=== PATIENT | male | born 1960 | race Caucasian/White ===

== ENCOUNTER 2024-08-15 18:06 | Emergency (ER) | payer OTHER ==
--- NOTE | 2024-08-15 18:32 | ERPHSYRPT ---
- History of Present Illness Time Seen by Provider: 08/15/24 18:25 Source: patient Exam Limitations: no limitations Physician History: This is a 64-year-old white male patient who arrives by private vehicle secondary to concern of very high blood pressure. Patient's measured systolic blood pressure at home this evening prior to arrival was in the 190s. Patient states he has some chest pain he also has blurred vision and a headache. Patient is currently not on any medications and is supposed to be taking lisinopril. Patient has a history of pancreatitis but he has no abdominal pain. He has had no nausea vomiting or diarrhea symptoms. Patient's blood pressure on arrival to the emergency department is 182/125. Severity: moderate Associated Symptoms: chest pain, headaches, No nausea, No vomiting, No abdominal pain, No shortness of breath Allergies/Adverse Reactions: No Known Drug Allergies Allergy (Verified 08/15/24 18:28) Home Medications: No Reportable Medications [No Reported Medications] 08/15/24 [History] Travel Risk - International Travel Have you traveled outside of the country in past 3 weeks: No - Emerging Infectious Disease Are you exhibiting symptoms associated with any current EIDs: No - Review of Systems Constitutional: No Symptoms Eyes: No Symptoms Ears, Nose, & Throat: No Symptoms Respiratory: No Symptoms Cardiac: Chest Pain Abdominal/Gastrointestinal: No Symptoms Genitourinary Symptoms: No Symptoms Musculoskeletal: No Symptoms Skin: No Symptoms Neurological: Headache, Other Psychological: No Symptoms (Blurred vision) Endocrine: No Symptoms Hematologic/Lymphatic: No Symptoms Immunological/Allergic: No Symptoms All Other Systems: Reviewed and Negative - Past Medical History Pertinent Past Medical History: Yes Neurological History: No Pertinent History ENT History: No Pertinent History Cardiac History: No Pertinent History Respiratory History: Emphysema Endocrine Medical History: No Pertinent History Musculoskeletal History: Other, Arthritis GI Medical History: No Pertinent History History: No Pertinent History Psycho-Social History: No Pertinent History Male Reproductive Disorders: No Pertinent History - Past Surgical History Past Surgical History: No - Social History Smoking Status: Current every day smoker Exposure to second hand smoke: Yes Drug Use: marijuana Patient Lives Alone: No - Nursing Vital Signs Nursing Vital Signs: Initial Vital Signs Temperature 98.8 F 08/15/24 18:25 Pulse Rate 91 H 08/15/24 18:25 Respiratory Rate 20 08/15/24 18:25 Blood Pressure 182/125 08/15/24 18:25 O2 Sat by Pulse Oximetry 98 08/15/24 18:25 Pain Scale Pain Intensity 0 - Physical Exam General Appearance: no apparent distress, alert, anxiety, thin Eye Exam: PERRL/EOMI, eyes nml inspection Ears, Nose, Throat Exam: normal ENT inspection, moist mucous membranes Neck Exam: normal inspection, non-tender, supple, full range of motion Respiratory Exam: normal breath sounds, chest tenderness, lungs clear, airway intact, No respiratory distress Cardiovascular Exam: regular rate/rhythm, normal heart sounds, normal peripheral pulses Gastrointestinal/Abdomen Exam: soft, normal bowel sounds, No tenderness Rectal Exam: not done Back Exam: normal inspection, normal range of motion, No CVA tenderness, No vertebral tenderness Extremity Exam: normal inspection, normal range of motion, pelvis stable Neurologic Exam: alert, oriented x 3, cooperative, plant tour guide II-XII nml as tested, nml cerebellar function, nml station & gait, sensation nml Skin Exam: normal color, warm, dry Lymphatic Exam: No adenopathy SpO2 Interpretation: normal O2 Delivery: Room Air - Course Nursing assessment & vital signs reviewed: Yes Ordered Tests: Active Orders 24 hr Category Date Time Status Bottle Sorter STAT Care 08/15/24 18:33 Active EKG-ER Only STAT Care 08/15/24 18:33 Active IV Insertion STAT Care 08/15/24 18:33 Active Pulse Oximetry (ED) STAT Care 08/15/24 18:33 Active HEAD WITHOUT CONTRAST [CT] Stat Exams 08/15/24 18:34 Ordered AMYLASE Stat Lab 08/15/24 18:45 Received CBC W DIFF Stat Lab 08/15/24 18:45 Completed CMP Stat Lab 08/15/24 18:45 Received MAGNESIUM Stat Lab 08/15/24 18:45 Received NT PRO BNPII Stat Lab 08/15/24 18:45 Received TROPONIN Stat Lab 08/15/24 18:45 Received Medication Summary Discontinued Medications Generic Name Dose Route Start Last Admin Trade Name Freq PRN Reason Stop Dose Admin Enalaprilat 1.25 mg 08/15/24 18:33 08/15/24 18:44 Enalaprilat 2.5 Mg Injection IV 08/15/24 18:34 1.25 mg STAT ONE Administration Enalaprilat Confirm 08/15/24 18:42 Enalaprilat 2.5 Mg Injection Administered 08/15/24 18:43 Dose 2.5 mg IV .STK-MED ONE Lab/Rad Data: Laboratory Result Diagrams 08/15/24 18:45 Laboratory Results 08/15/24 Range/Units 18:45 WBC 10.0 H (4.23-9.07) x10^3/uL RBC 5.05 (4.63-6.08) x10^6/uL Hgb 13.9 (13.7-17.5) g/dL Hct 42.9 (40.1-51.0) % MCV 85.0 (79.0-92.2) fL MCH 27.5 (25.7-32.2) pg MCHC 32.4 (32.3-36.5) g/dL RDW 14.2 (11.6-14.4) % Plt Count 404 H (163-337) x10^3/uL MPV 9.9 (9.4-12.4) fL Gran % 54.0 (34.0-67.9) % Immature Gran % (Auto) 0.3 (0.001-0.429) % Nucleat RBC Rel Count 0.0 (0.00-0.2) % Eos # (Auto) 0.25 (0.04-0.54) x10^3/uL Immature Gran # (Auto) 0.03 (0.001-0.031) x10^3u/L Absolute Lymphs (auto) 3.29 (1.32-3.57) x10^3/uL Absolute Monos (auto) 0.96 H (0.30-0.82) x10^3/uL Absolute Nucleated RBC 0.00 (0.00-0.012) x10^3u/L Lymphocytes % 32.8 (21.8-53.1) % Monocytes % 9.6 (5.3-12.2) % Eosinophils % 2.5 (0.8-7.0) % Basophils % 0.8 (0.2-1.2) % Absolute Granulocytes 5.42 H (1.78-5.38) x10^3/uL Basophils # 0.08 (0.01-0.08) x10^3/uL - Progress Progress Note: 08/15/24 18:46 I am transferring care of this patient to Dr. Washington at shift change. He will follow-up on the workup results and make final disposition. 08/15/24 18:51 My medical decision making and the assignment of moderate complexity to this patient's medical issue today is based on review of the patient's past medical history, review the patient's medication list, review the patient drug allergy list, history present illness and physical findings on examination. The workup in this patient clues placement of an intravenous line, infusion of Vasotec IV, CBC, CMP, magnesium level, troponin level, twelve-lead EKG, CT scan of the head without contrast, PT/INR. Differential diagnosis includes was not limited to hypertension, acute intracranial abnormality, electrolyte abnormalities, noncompliance with medication, arrhythmia, myocardial infarction - Departure Departure Disposition: Home Clinical Impression: Hypertension Condition: Stable Critical Care Time: No Referrals: MARY MADERA MD [ACTIVE STAFF] - Follow up/PCP as directed
[2024-08-15] MEDS ORDERED: ENALAPRILAT 2.5 MG INJECTION IV ONE (18:42)
[2024-08-15 18:43] VITALS: TEMP 98.8
[2024-08-15] MEDS: ENALAPRILAT 2.5 MG INJECTION IV ONE (18:44)
[2024-08-15 18:50] LABS: Absolute Neutrophil Ct (ANC) 5.42 x10^3/uL (1.78-5.38); BASOPHIL % 0.8 % (0.2-1.2); Basophil (Absolute #) 0.08 x10^3/uL (0.01-0.08); Eosinophil % 2.5 % (0.8-7.0); Eosinophil (Absolute #) 0.25 x10^3/uL (0.04-0.54); Hematocrit 42.9 % (40.1-51.0); Hemoglobin 13.9 g/dL (13.7-17.5); IMMATURE GRAN # 0.03 x10^3u/L (0.001-0.031); IMMATURE GRAN % 0.3 % (0.001-0.429); Lymphocyte (Absolute #) 3.29 x10^3/uL (1.32-3.57); Lymphocytes % 32.8 % (21.8-53.1); Mean Corpuscular Hemoglobin 27.5 pg (25.7-32.2); Mean Corpuscular Hgb Concent. 32.4 g/dL (32.3-36.5); Mean Platelet Volume 9.9 fL (9.4-12.4); Monocyte (Absolute #) 0.96 x10^3/uL (0.30-0.82); Monocytes % 9.6 % (5.3-12.2); Platelet Count 404 x10^3/uL (163-337); Red Blood Count 5.05 x10^6/uL (4.63-6.08); Red Cell Distribution Width 14.2 % (11.6-14.4)
[2024-08-15 19:39] LABS: ALBUMIN 4.6 g/dL (3.5-5.0); ALKALINE PHOSPHATASE 93 U/L (38-126); AMYLASE 101 U/L (30-110); BLOOD UREA NITROGEN 21 mg/dL (9-20); CHLORIDE 104 mmol/L (98-107); Calcium 9.4 mg/dL (8.4-10.2); Carbon Dioxide 29 mmol/L (22-30); Creatinine 1 1.31 mg/dL (0.66-1.25); EST GLOMERULAR FILTRATION RATE 60.8 ML/MIN; Glucose 97 mg/dL (74-106); MAGNESIUM 2.1 mg/dL (1.6-2.3); Potassium 3.8 mmol/L (3.5-5.1); SGOT/AST 26 U/L (17-59); SGPT/ALT 15 U/L (0-50); SODIUM 140 mmol/L (135-145); TROPONIN < 0.012 ng/mL (0.000-0.033); Total Protein 8.6 g/dL (6.3-8.2)
--- NOTE | 2024-08-15 20:11 | XRAY ---
CLINICAL HISTORY: SEGOVIA; blurred vision; hypertension COMPARISON: None. TECHNIQUE: Axial noncontrast CT scan of the brain was performed from the skull base to the high parietal region. One of the following dose reduction techniques were utilized for this exam: Automated exposure control, adjustment of the mA and/or kV according to patient size, use of iterative reconstruction. FINDINGS: The visualized brain parenchyma shows normal appearance. De Leon-white matter differentiation is maintained. No midline shifts or deformity. No intracerebral or extra axial hematoma. Normal size and configuration of the cerebral ventricles. Normal CT appearance of the posterior fossa structures namely the cerebellar hemispheres, brainstem and cerebellar peduncles. The cerebello-pontine angles are clear. The osseous structures in the skull base are unremarkable. No definite calvarium fractures. The scanned paranasal sinuses are clear. Bilateral mastoid air cells appear unremarkable. IMPRESSION: No acute intracranial abnormality detected in plain CT head at present. If there is strong clinical suspicion of any acute insult MRI brain can be done. Electronically Signed by: Duane Card MD. (08/15/2024 20:07:18 EST)
[2024-08-15 20:27] VITALS: O2SAT 97
[2024-08-15 21:02] VITALS: BP 139/104; PULSE 79; RESP 19
== END 2024-08-15 21:11 | disposition home or self-care (01) ==
LOC: ED 18:06
DX: I10 Essential (primary) hypertension (principal); R07.9 Chest pain, unspecified; R51.9 Headache, unspecified; H53.8 Other visual disturbances; Z79.899 Other long term (current) drug therapy; Z72.0 Tobacco use
CPT/HCPCS: 36415; 70450; 80053; 82150; 83735; 83880; 84484; 85025; 93005; 93041; 94760; 96374; 99284; 99285

== ENCOUNTER 2025-05-18 06:29 | Day surgery (SDC) | payer MEDICARE, OTHER ==
[2025-05-18] MEDS ORDERED: CEFAZOLIN SODIUM ONE ×2 (06:53→06:54)
[2025-05-18] MEDS ORDERED: Lactated Ringers 1,000 ML IV ONE ×2 (06:53→10:53)
[2025-05-18] MEDS ORDERED: Lactated Ringers 1,000 ML IV SCH (07:00)
[2025-05-18] MEDS ORDERED: TYLENOL EXTRA STRENGTH 500 MG ONE (07:30)
[2025-05-18] MEDS ORDERED: NEURONTIN ONE (07:30)
[2025-05-18] MEDS ORDERED: celeBREX 100 MG ONE (07:31)
[2025-05-18] MEDS ORDERED: Decadron 4 MG ONE (07:31)
[2025-05-18] MEDS: TYLENOL EXTRA STRENGTH 500 MG PO ONE (07:32)
[2025-05-18] MEDS: NEURONTIN PO ONE (07:32)
[2025-05-18] MEDS: Decadron 4 MG PO ONE (07:32)
[2025-05-18] MEDS: celeBREX 100 MG PO ONE (07:32)
[2025-05-18 07:33] LABS: Hematocrit 42.9 % (40.1-51.0); Hemoglobin 13.8 g/dL (13.7-17.5); Mean Corpuscular Hemoglobin 28.1 pg (25.7-32.2); Mean Corpuscular Hgb Concent. 32.2 g/dL (32.3-36.5); Platelet Count 336 x10^3/uL (163-337); Red Blood Count 4.91 x10^6/uL (4.63-6.08); White Blood Count 9.4 x10^3/uL (4.23-9.07)
[2025-05-18 07:44] VITALS: O2SAT 96
[2025-05-18 07:45] LABS: Calcium 8.7 mg/dL (8.4-10.2); Carbon Dioxide 24.0 mmol/L (22-30); Creatinine 1 1.37 mg/dL (0.66-1.25); EST GLOMERULAR FILTRATION RATE 57.3 ML/MIN; Glucose 111.0 mg/dL (74-106); Potassium 4.1 mmol/L (3.5-5.1); SGOT/AST 18.0 U/L (17-59); SGPT/ALT 13.0 U/L (0-50); Total Protein 7.8 g/dL (6.3-8.2)
[2025-05-18] MEDS ORDERED: propofoL IV ONE (07:45)
[2025-05-18] MEDS ORDERED: ROCURONIUM BROMIDE IV ONE (07:45)
[2025-05-18] MEDS ORDERED: Versed 2 MG/2 ML Injection ONE ×2 (07:46→08:29)
[2025-05-18] MEDS ORDERED: SUBLIMAZE 100 MCG/2 ML ONE (07:46)
[2025-05-18] MEDS ORDERED: Xylocaine-Mpf 2% 5 Ml Vial ONE (07:47)
[2025-05-18] MEDS ORDERED: Marcaine Mpf 0.5% Vial 30 Ml ONE (08:14)
[2025-05-18] MEDS ORDERED: EXPAREL 133 MG/10 ML VIAL IJ ONE (08:14)
[2025-05-18] MEDS ORDERED: PHENYLEPHRINE HCL ONE (10:37)
--- NOTE | 2025-05-18 12:11 | XRAY ---
Indication: Right ankle surgery. Hardware removal, partial tail ectomy, multiple bone biopsies, antibiotic cement spacer, and I & D with bone debridement. Intraoperative fluoroscopy provided for 2 minute 18 seconds. 11 digital spot images submitted for interpretation ultimately demonstrates removal all orthopedic screws and insertion talotibial spacer. Correlate with intraoperative findings/report.
[2025-05-18 12:59] VITALS: BP 143/97; PULSE 82; RESP 17; TEMP 98
--- NOTE | 2025-05-18 15:13 | XRAY ---
2 minutes 18 seconds of fluoroscopy used in surgery for a right ankle for hardware removal, partial talectomy, multiple bone biopsies, antibiotic cement spacer, and I & D with bone debridement.
--- NOTE | 2025-05-19 09:50 | OP ---
SURGERY DATE/TIME: 05/18/2025 [id number] PREOPERATIVE DIAGNOSES: 1) Right ankle pain. 2) Painful orthopedic hardware. 3) Avascular necrosis, right talus. 4) Osteomyelitis right talus. 5) Traumatic deformity, right ankle. 6) Traumatic osteoarthritis, right ankle. 7) Painful retained hardware, right ankle. POSTOPERATIVE DIAGNOSES: 1) Right ankle pain. 2) Painful orthopedic hardware. 3) Avascular necrosis, right talus. 4) Osteomyelitis right talus. 5) Traumatic deformity, right ankle. 6) Traumatic osteoarthritis, right ankle. 7) Painful retained hardware, right ankle. PROCEDURES: 1) Incision and drainage with bone debridement, right ankle. 2) Partial talectomy, right ankle. 3) Bone biopsy, right tibia. 4) Bone biopsy, right talus. 5) Bone biopsy, right calcaneus. 6) Bone biopsy, right fibula. 7) Application of antibiotic impregnated cement spacer. 8) Removal of retained hardware, right talus and tibia. SURGEON: Tato Fritz MD DENTAL MANAGER: None. ANESTHESIA: General. HEMOSTASIS: Tourniquet set to 325 mmHg for a total of 75 total tourniquet minutes. ESTIMATED BLOOD LOSS: Approximately 20 mL. INJECTABLES: See Anesthesia report for details. A popliteal and saphenous block. INDICATIONS FOR PROCEDURE: The patient is a very pleasant, 65-year-old male, who presented to my service with complaints of pain to the right ankle stating that he had fallen off a richar approximately 2 years ago and had surgery with Dr. Medina in [place]. He states that his first surgery was to the medial ankle. One month later, he had another surgery to the lateral side and the patient was unfortunately unhappy with the experience. He states that due to the lack of the patient care he received, he feels like he has been walking on a club and he has developed sharp, shooting pains to the right ankle. From that standpoint, patient had x-rays taken, which demonstrated avascular necrosis of the talus, which after a fall from a richar is an expected complication in regards to extreme vascular damage to the talus. At this time, he does have some significant disillusion and fragmentation of the bone surrounding the talus and the tibia, as well as painful retained hardware, significant swelling and deformity. From that standpoint, patient is amenable to going forward with removal of the hardware and temporizing the situation with antibiotic impregnated cement, as well as removal of hardware and bone debridement. This will give us a chance to obtain bone biopsies and confirm or deny the presence of bone infection, which can very much look like avascular necrosis or Charcot osteoarthropathy. From that standpoint, patient has been made aware of all risks, complications and benefits of surgical intervention at this time including but not limited to infection, hematoma, seroma, possibility of delayed wound healing, non-wound healing, and possible need for further surgical intervention at a later date. No guarantees were provided as to the outcome. Plenty of time was allowed for the patient to ask questions, which were answered to his apparent satisfaction. It is at this time we decided to proceed. DESCRIPTION OF PROCEDURE AND FINDINGS: Patient was brought into the PACU prior to the procedure and provided a popliteal and saphenous block. Following this, the patient was brought in the operating room and placed on the operating room table in the supine position. General anesthesia was administered until the patient was adequately sedated. A very well-padded thigh tourniquet was applied and the tourniquet was set to 325 mmHg. At this time, the right lower extremity was prepped and draped in the typical sterile fashion and lowered onto the surgical field. Attention was directed to the right ankle over the anterolateral aspect of the ankle where previous surgical scar was identified. Under fluoroscopic guidance, this was intended to be our hardware removal point for the talar screws. From that standpoint, an Esmarch was utilized to exsanguinate the leg, and the tourniquet was inflated. A linear incision was made over the anterolateral aspect of the ankle where this was deepened and immediately ran into within the scar tissue and not affixed to the bone, the hardware was readily apparent. The screws were loose and were able to be removed without a horse and wagon driver utilizing a pair of rongeurs. The plate also was able to be removed easily from this site. Once this was removed, we moved on to the medial side where the talar head screws, as well as the medial malleolar screws, were removed through separate incisions. They were all loose and required larger incisions in order to introduce a rongeur in order to remove the retained hardware. From that standpoint, once the hardware was removed, bone debridement took place utilizing a combination of rongeurs, curettes, [place], as well as a 31 mm sagittal saw. This occurred to the tibia and the talus where, at this time, decision was made to perform a partial talectomy of the posterior half of the talus where there was a significant amount of subsidence and scar tissue. When this was removed, it was approximately a quarter of the talus had been removed in total. Bone biopsies were then obtained of the tibia, fibula, talus and calcaneus for assessing for the potential of chronic or acute bone infection. From that standpoint, a 0.5 of a gram gentamicin antibiotic spacer was then introduced into the deficit after Bactisure was utilized to flush the surgical site and sterile saline was utilized to flush it once again. Once this was placed, all retained hardware sites were debrided utilizing a rongeur and curette, curetting any of the screw holes and once this was achieved, copious amounts of sterile saline were once again utilized to flush the site. A 3-0 nylon and 4-0 Monocryl were utilized in a subcutaneous simple interrupted buried-type fashion and a horizontal mattress-type fashion for the skin. A dressing consisting of Betadine, Adaptic, 4 x 4, Kerlix, ABD and a well-padded posterior splint was applied to the patient's right lower extremity with the foot orthogonal relative to longitudinal access of the leg. Patient was then reversed from anesthesia and returned to the postoperative anesthesia care unit with vital signs stable and vascular status intact. Patient handled the anesthesia, as well as the procedure, without significant complication. Postoperative orders as indicated in the patient's discharge chart.
== END 2025-05-18 13:17 | disposition home or self-care (01) ==
LOC: SDC 06:29
PROVIDERS: ATTEND Podiatrist Foot & Ankle Surgery
DX: T84.84XA Pain due to internal orthopedic prosthetic devices, implants and grafts, initial encounter (principal); M25.571 Pain in right ankle and joints of right foot; M86.9 Osteomyelitis, unspecified; M87.074 Idiopathic aseptic necrosis of right foot; M19.071 Primary osteoarthritis, right ankle and foot
CPT/HCPCS: 01480; 01482; 11981; 20245; 20680; 27603; 27645; 36415; 64447; 64450; 73610; 76000; 76942; 80053; 85027; 87070; 87075; 88307; 88311; A6260; C1713

== ENCOUNTER 2025-06-08 10:48 | Day surgery (SDC) | payer MEDICARE, OTHER ==
[2025-06-08] MEDS ORDERED: EXPAREL 133 MG/10 ML VIAL IJ ONE (10:49)
[2025-06-08] MEDS ORDERED: TYLENOL EXTRA STRENGTH 500 MG ONE (11:58)
[2025-06-08] MEDS ORDERED: Decadron 4 MG ONE (11:59)
[2025-06-08] MEDS ORDERED: celeBREX 100 MG ONE (11:59)
[2025-06-08] MEDS ORDERED: Lactated Ringers 1,000 ML IV ONE ×2 (11:59→15:39)
[2025-06-08] MEDS ORDERED: NEURONTIN ONE (11:59)
[2025-06-08] MEDS ORDERED: CEFAZOLIN SODIUM ONE (11:59)
[2025-06-08 12:03] VITALS: RESP 18; O2SAT 97
[2025-06-08] MEDS: NEURONTIN PO ONE (12:03)
[2025-06-08] MEDS: celeBREX 100 MG PO ONE (12:03)
[2025-06-08] MEDS: TYLENOL EXTRA STRENGTH 500 MG PO ONE (12:03)
[2025-06-08] MEDS: Decadron 4 MG PO ONE (12:03)
[2025-06-08] MEDS ORDERED: Lactated Ringers 1,000 ML IV SCH (12:30)
[2025-06-08 12:56] LABS: Calcium 8.7 mg/dL (8.4-10.2); Carbon Dioxide 24.0 mmol/L (22-30); Creatinine 1 1.21 mg/dL (0.66-1.25); EST GLOMERULAR FILTRATION RATE 66.5 ML/MIN; Glucose 92.0 mg/dL (74-106); Potassium 4.1 mmol/L (3.5-5.1)
[2025-06-08] MEDS ORDERED: Versed 2 MG/2 ML Injection ONE ×2 (13:46→13:52)
[2025-06-08] MEDS ORDERED: Marcaine Mpf 0.5% Vial 30 Ml ONE (13:47)
[2025-06-08] MEDS ORDERED: SUBLIMAZE 100 MCG/2 ML ONE ×3 (13:53→16:19)
[2025-06-08] MEDS ORDERED: propofoL IV ONE (14:18)
[2025-06-08] MEDS ORDERED: ROCURONIUM BROMIDE IV ONE (15:11)
[2025-06-08] MEDS ORDERED: BRIDION 200MG/2ML IV ONE (16:56)
--- NOTE | 2025-06-08 17:19 | XRAY ---
Indication: Right ankle ORIF surgery. Intraoperative fluoroscopy provided for 4 minute 41 seconds. 27 digital spot images submitted for interpretation demonstrates initial exchange talotibial spacer and partial excision distal fibula. New intramedullary gopal traverses talotibial joint with proximal/distal transverse screws. Correlate with intraoperative findings/report.
[2025-06-08] MEDS ORDERED: TRANDATE 20 MG/4 ML SYRINGE IV ONE (17:44)
[2025-06-08] MEDS ORDERED: DILAUDID 0.5 MG/0.5 ML SYRINGE ONE (17:59)
[2025-06-08 18:27] VITALS: TEMP 97.3
[2025-06-08 18:42] VITALS: BP 161/103; PULSE 85
--- NOTE | 2025-06-09 08:37 | XRAY ---
Indication: Pain. Comparison: None 3 nonweightbearing views left foot demonstrates tiny posterior/plantar heel spurs. No other bony, articular, or soft tissue abnormalities.
--- NOTE | 2025-06-09 08:37 | XRAY ---
Indication: Pain. Comparison: None 3 view left ankle demonstrates tiny posterior/plantar heel spurs. No other bony, articular, or soft tissue abnormalities.
--- NOTE | 2025-06-09 15:19 | XRAY ---
Four minutes and 41 seconds of fluoroscopy was used in surgery for a right ankle ORIF surgery.
--- NOTE | 2025-06-11 09:50 | OP ---
SURGERY DATE/TIME: 06/08/2025 [id number] PREOPERATIVE DIAGNOSES: 1) Avascular necrosis, right talus. 2) Osteoarthritis of right ankle. 3) Subtalar joint osteoarthritis. 4) Difficulty with ambulation. 5) Leg length discrepancy. 6) Right ankle pain. POSTOPERATIVE DIAGNOSES: 1) Avascular necrosis, right talus. 2) Osteoarthritis of right ankle. 3) Subtalar joint osteoarthritis. 4) Difficulty with ambulation. 5) Leg length discrepancy. 6) Right ankle pain. PROCEDURES: 1) Partial talectomy. 2) Partial fibulectomy. 3) Tibiotalocalcaneal arthrodesis, right ankle. 4) Removal of deep implant. 5) Bone marrow aspiration. SURGEON: Tato Fritz MD CHORE TENDER: None. MATERIALS: [place] ankle nail measuring 10 x 210 mm, allograft femoral head and BMA for harvest from the calcaneus. ANESTHESIA: General plus a preoperative popliteal and saphenous block. See Anesthesia report for details. HEMOSTASIS: Thigh tourniquet set to 325 mmHg for a total of 90 total tourniquet minutes. ESTIMATED BLOOD LOSS: Approximately 20 mL. INDICATIONS FOR PROCEDURE: This a second stage to a procedure for the patient. Patient, unfortunately, did have a fall from a height approximately 4 years ago where he did have a fracture of his fracture of his talus, which went well initially. However, over time he did suffer avascular necrosis of the talus with talar collapse. Patient presented to my service fairly frustrated with the care that he received; however, it has been explained to him that avascular necrosis is something that can happen due to loss of blood supply to the talus. From that standpoint, the goal of today's procedure, given that we have already presented with removal of hardware and bone biopsies in multiple sites, revealing that the patient has no osteomyelitis, chronic or acute in this setting that we would proceed with definitive fixation. From that standpoint, patient has been made aware of all risks, complications and benefits of surgical intervention at this time, including but not limited to infection, hematoma, seroma, possibility of delayed wound healing, non-wound healing, and possible need for further surgical intervention at a later date. No guarantees were provided as to the outcome of surgical intervention. Plenty of time was allowed for the patient to ask questions, which were answered to his apparent satisfaction. It is at this time we decided to proceed. DESCRIPTION OF PROCEDURE AND FINDINGS: Patient was brought into the operating room and placed on the operating room table in the supine position. General anesthesia was administered until the patient was adequately sedated. A very well-padded tourniquet was applied to the patient's right thigh, and the tourniquet was set to 325 mmHg. From that standpoint, the right lower extremity was then prepped and draped in the typical sterile fashion and lowered onto the surgical field. Attention was directed to the lateral aspect of the ankle where at this time a linear incision was made to the level of fibula making sure not to damage any neurovascular structures. From that standpoint, once the fibula was circumscribed utilizing a 10 blade, a 31 mm sagittal saw was then utilized to resect the fibula proximally and then, utilizing an osteotome and a pointed reduction forceps, this was retracted distally and removed from the site. From that standpoint, portion of the fibula was then morcellized and utilized for later grafting. From that standpoint, we did proceed with preparation of both the subtalar and the tibiotalar joints at this time. Combination of a 31 mm sagittal saw, curettes, rongeurs, as well as 2-0 mm drill were utilized to clean any remaining cartilage out of the site. A portion of the talus anteriorly was removed in order to get better apposition of the allograft in a position that the foot would remain orthogonal relative to the longitudinal axis of the leg. Once this was performed, the site was checked, demonstrating some significant loss of space and height from where the talus was. To recreate the height of the talus, a femoral head allograft was obtained, and cut to size in the length and height of a talus. This was cut from the base of the femoral neck, leading into the femoral head body for the strongest structural support, as well as cortical bone. A BMA harvest was performed and this was soaked within the BMA harvest. Once position was assessed and deemed to be adequate, the allograft was placed and once positioned, was assessed to be adequate. This was pinned. At this time, the Aleksandra [place] nail was then introduced from a distal orientation and following fur ironer's specifications providing external and internal compression through the subtalar and tibiotalar joints. Position was first thrown from a medial to lateral orientation of the calcaneus and then, a posterior to anterior position of the calcaneus. A proximal screw was put in the dynamic hole of the nail and then, external compression was applied through this site, gaining excellent compression with no visible gapping between the allograft, the subtalar joint and the talus. Once this was performed, the additional screws were then placed in the proximal extent. Final position was assessed and deemed to be orthogonal with no varus or valgus position, fairly neutral in nature, and a foot dorsiflexed to 90 degrees relative to the longitudinal axis of the leg. From that standpoint, copious amounts of sterile saline were utilized to flush the surgical site. A 4-0 Monocryl was utilized to coapt the subcutaneous edges of skin in a simple interrupted buried-type fashion and then, 3-0 nylon was utilized in a horizontal mattress-type fashion to coapt the skin edges. A dressing consisting of Betadine, Adaptic, 4 x 4, Kerlix, ABD and a well-padded posterior sugar-tong was applied to the patient's right lower extremity with the foot orthogonal relative to the longitudinal access of the leg. Patient was then reversed from anesthesia and returned to the postoperative anesthesia care unit with vital signs stable and vascular status intact. Patient handled the anesthesia, as well as the procedure, without significant complication. Postoperative orders as indicated in the patient's discharge chart.
== END 2025-06-08 18:46 | disposition home or self-care (01) ==
LOC: SDC 10:48
PROVIDERS: ATTEND Podiatrist Foot & Ankle Surgery
DX: M87.071 Idiopathic aseptic necrosis of right ankle (principal); M19.071 Primary osteoarthritis, right ankle and foot; R26.2 Difficulty in walking, not elsewhere classified; M21.70 Unequal limb length (acquired), unspecified site; M25.571 Pain in right ankle and joints of right foot